=== PATIENT | male | born 1940 | race Caucasian/White ===

== ENCOUNTER 2023-07-15 14:56 | Inpatient (IN) | payer MEDICARE, SELFPAY ==
[2023-07-15 15:20] VITALS: BMI 18.0
--- NOTE | 2023-07-15 15:20 | ADMGEN ---
This patient, Alex Barton, was admitted to 2nd Floor Room 204-1. Patient/family oriented to hospital policies and general routines including ID bracelet, bed and alarms, visiting hours, pain management, procedures, bathroom and other care routines, personal items, smoking policy, room service/diet, and visiting hours. Information on how to activate the Rapid Response Team has been discussed. Patient/Family are encouraged to report perceived risks to care and to ask questions if they do not understand what they are told or what they should do.
[2023-07-15 16:00] VITALS: BP 117/67; PULSE 64; RESP 18; TEMP 35.9; O2SAT 97
[2023-07-15] MEDS: APIXABAN 2.5 MG TABLET PO (17:58)
[2023-07-15] MEDS: LOVASTATIN 20 MG TABLET 40 MG PO (17:58)
[2023-07-15] MEDS: DORZOLAMIDE/TIMOLOL OPHTH SOL 10 ML BOTTLE 1 DROP EACH EYE (17:58)
[2023-07-15 20:00] VITALS: PULSE 64; RESP 18; O2SAT 97
[2023-07-15] MEDS: GABAPENTIN 300 MG CAPSULE PO (20:45)
[2023-07-15] MEDS: clonazePAM (*CRX) 0.5 MG TABLET 2 MG PO (20:45)
[2023-07-15] MEDS: MELATONIN 3 MG TABLET PO (20:46)
[2023-07-15] MEDS: rOPINIRole HCL 1 MG TABLET 5 MG PO (20:46)
[2023-07-16] VITALS: BP 103/71; PULSE 78; RESP 18; TEMP 36.6; O2SAT 97
--- NOTE | 2023-07-16 04:57 | PC.NURSE ---
Patient was in bed watching TV. He requested his sleeping pill, and wanted his medications given at 2044. Vitals are WNL. Patient had one confused episode, but reoriented easily. Patient slept well. At about 299, patient was found sleeping in a slumped over seated position in bed. Patient was able to go back to sleep in a better position. Patient does not have any PRN pain medications on his JUN. He did not c/o pain. Patient has some orders that need to be clarified tomorrow.
[2023-07-16 06:05] LABS: Basophils Absolute Auto 0.07 K/mm3 (0.00-0.10); Basophils Percent Auto 1.2 % (0.0-1.0); Eosinophils Absolute Auto 0.17 K/mm3 (0.02-0.50); Hematocrit 40.9 % (37.0-46.0); Hemoglobin 13.7 g/dL (12.4-15.3); Immature Granulocyte Absolute 0.01 K/mm3 (0.00-0.00); Immature Granulocyte Percent A 0.2 % (0.0-0.0); Lymphocytes Absolute Auto 1.57 K/mm3 (1.10-4.50); Lymphocytes Percent Auto 27.4 % (18.0-42.0); Mean Corpuscular HGB Conc 33.5 g/dL (32-36); Mean Corpuscular Hemoglobin 32.2 pg (27.0-31.0); Mean Corpuscular Volume 96.2 fL (78.0-102.0); Mean Platelet Volume 11.4 fl (8.7-11.0); Monocytes Absolute Auto 0.79 K/mm3 (0.10-0.90); Monocytes Percent Auto 13.8 % (2.0-11.0); Neutrophils Absolute Auto 3.11 K/mm3 (1.70-7.20); Neutrophils Percent Auto 54.4 % (50.0-70.0); Platelet Count Result 187 K/mm3 (150-420); Red Blood Count 4.25 M/mm3 (4.70-6.10); Red Cell Distribution Width 12.8 % (11.6-14.4); White Blood Count 5.7 K/mm3 (4.8-10.8)
[2023-07-16 06:24] LABS: Alanine Aminotransferase 19 U/L (16-63); Albumin Level 3.5 g/dL (3.4-5.0); Alkaline Phosphatase 76 U/L (46-116); Anion Gap 10 mmol/L (4-12); Aspartate Amino Transferase 21 U/L (15-37); Bilirubin,Total 0.7 mg/dL (0.00-1.00); Blood Urea Nitrogen 19 mg/dL (7-18); Calcium 9.2 mg/dL (8.5-10.1); Carbon Dioxide 28 mmol/L (21-32); Chloride 105 mmol/L (98-108); Estimated CRCL calculation 43 ml/min; Estimated Glomerular Filt Rate > 60; Glucose 86 mg/dL (70-99); Magnesium 2.1 mg/dL (1.8-2.4); Osmolality Calculated 297 mOsm/kg (285-295); Potassium 3.8 mmol/L (3.5-5.1); Sodium 143 mmol/L (136-145); Total Protein 6.1 g/dL (6.4-8.2)
[2023-07-16 08:00] VITALS: BP 128/73; PULSE 70; RESP 20; TEMP 35.8; O2SAT 100
[2023-07-16] MEDS: APIXABAN 2.5 MG TABLET PO ×2 (09:35→16:27)
[2023-07-16] MEDS: EMPAGLIFLOZIN 10 MG TABLET PO (09:35)
[2023-07-16] MEDS: GABAPENTIN 300 MG CAPSULE PO ×2 (09:35→16:27)
[2023-07-16] MEDS: ASPIRIN 81 MG ENTERIC TABLET PO (09:35)
[2023-07-16] MEDS: DORZOLAMIDE/TIMOLOL OPHTH SOL 10 ML BOTTLE 1 DROP EACH EYE ×2 (10:00→16:28)
--- NOTE | 2023-07-16 10:43 | PM.IMHP ---
H&P: HPI History of Present Illness Date/Time: 07/16/23 10:43 Chief Complaint: sWING, pOST COVID , WEAKNESS , decreased functional mobility Narrative: This is a 82 year old male that is being admitted into our swing bed due to weakness Post Covid. Patient was treated for Covisd and some Slurred speech . Patient has a past mwedical hisotry of Chronic systolic CHF, EF 40-45%, Mild to moderate aortic stenosis, Atrial fibrillation, BPH CAD carotid artery stensiosi, insomnia, PVD, restless leg syndrom, hypercholesterolemia, stroke, abdominal aortic anerusm status post endovascular repair. Patient will continue his home medication and he will recieve physical and therapy while here until he is stable for discharge Review of Systems Review of Systems: Weakness, slurred speech All systems reviewed & are unremarkable except as noted in HPI and below PMFSH Past Medical History Medical History (Updated 07/16/23 @ 10:52 by Nate Pedroza NP) Aortic stenosis Atrial fibrillation Bronchitis CAD (coronary artery disease) Congestive heart failure Constipation Hypertension Insomnia Stroke Weakness Social History Social History Smoking status: Light tobacco smoker Tobacco type: cigarettes Second hand tobacco smoke exposure: No Alcohol intake: never Substance use: never Do You Feel Safe in your Home?: Yes Lack of Transportation: No Lack of Food: Never True Current Housing: I Have Housing Concerned About Future Housing: No Difficulty Paying Gas/Electric Bills: No Difficulty Paying for Meds: No Currently Unemployed: No Education: Trade/Vocational Certificate Difficulty w/ Childcare or Family Care: No Spiritual care concerns: No Meds Home Medications and Allergies Home Medications Medication Instructions Recorded Confirmed Type apixaban 2.5 mg tablet 2.5 mg PO BID 07/15/23 07/15/23 History aspirin 81 mg tablet 81 mg PO DAILY 07/15/23 07/15/23 History clonazepam 2 mg tablet 2 mg PO HS 07/15/23 07/15/23 History dorzolamide 22.3 mg-timolol 6.8 1 drp EACH EYE BID 07/15/23 07/15/23 History mg/mL eye drops empagliflozin 10 mg tablet 10 mg PO DAILY 07/15/23 07/15/23 History (Jardiance) gabapentin 300 mg capsule 300 mg PO BID 07/15/23 07/15/23 History lisinopril 5 mg tablet 5 mg PO BID 07/15/23 07/15/23 History lovastatin 40 mg tablet 40 mg PO QPM 07/15/23 07/15/23 History melatonin 3 mg tablet 3 mg PO HS PRN Insomnia 07/15/23 07/15/23 History metoprolol succinate 25 mg 25 mg PO DAILY 07/15/23 07/15/23 History tablet,extended release 24 hr polyethylene glycol 3350 17 gram 17 g PO DAILY PRN Constipation 07/15/23 07/15/23 History oral powder packet ropinirole 5 mg tablet 5 mg PO BID 07/15/23 07/15/23 History tacrolimus 0.1 % topical ointment 1 applic topical BID 07/15/23 07/15/23 History Allergies Allergy/AdvReac Type Severity Reaction Status Date / Time No Known Allergies Allergy Verified 07/15/23 16:47 Vital Signs Vital Signs - 24 hr 07/15/23 16:00 07/15/23 16:00 07/15/23 16:00 Temperature 96.7 F L 96.7 F L Pulse Rate 64 64 64 Respiratory Rate 18 18 18 Blood Pressure 117/67 117/67 Pulse Oximetry 97 97 97 Oxygen Delivery Room Air Room Air Room Air 07/15/23 20:00 07/16/23 00:00 07/16/23 08:00 Temperature 97.8 F 96.4 F L Pulse Rate 64 78 70 Respiratory Rate 18 18 20 Blood Pressure 103/71 128/73 Pulse Oximetry 97 97 100 Oxygen Delivery Room Air Room Air Room Air Exam Const: General: comfortable and no acute distress HENMT: Face/Nose/Sinus: Normal nares present Mouth: Yes moist mucous membranes Eyes: General: appearance normal, both eyes and all related structures Pupils: Equal, round and reactive pupils present Resp: Auscultation: clear to auscultation bilaterally and diminished lung sounds (right lower lobe ) Extrem: General: normal to inspection Psych: Affect: normal affect H&P: Results Labs Labs: Short CBC 07/16/23 Ra
--- NOTE | 2023-07-16 12:24 | PHAR ---
VERIFIED PT.'S OWN SUPPLY OF COSOPT OPHTHALMIC DROPS, 1 DROP EACH EYE BID.
--- NOTE | 2023-07-16 14:15 | PHAR ---
VERIFIED HOME MED TACROLIMUS OINTMENT 0.1% APPLY TO LOWER EYE BID.
[2023-07-16 16:00] VITALS: BP 124/68; PULSE 70; RESP 18; TEMP 36; O2SAT 98
[2023-07-16] MEDS: TACROLIMUS 0.1% 30 GM OINTMENT 1 APPLIC TOPICAL (16:28)
[2023-07-16] MEDS: DICLOFENAC SODIUM 1% 100 GM GEL (*BKC) 1 APPLIC TOPICAL ×2 (16:28→21:07)
[2023-07-16] MEDS: LOVASTATIN 20 MG TABLET 40 MG PO (17:44)
[2023-07-16] MEDS: clonazePAM (*CRX) 0.5 MG TABLET 2 MG PO (21:07)
[2023-07-16] MEDS: rOPINIRole HCL 1 MG TABLET 5 MG PO (21:07)
[2023-07-17] VITALS: BP 142/64; PULSE 81; RESP 16; TEMP 36.4; O2SAT 98
[2023-07-17 07:30] VITALS: BP 93/51; PULSE 67; RESP 16; TEMP 36; O2SAT 98
--- NOTE | 2023-07-17 09:17 | P.PNCROSS_ITS ---
Event Note Event Note Event Note: Blood pressure ranging 124/68 to 142/64. Restarted his lisinopril and his me toprolol today. Patient has a history of AFib and is currently on Eliquis. His heart rate is 60-81 currently. We will continue to monitor.
[2023-07-17] MEDS: ASPIRIN 81 MG ENTERIC TABLET PO (09:34)
[2023-07-17] MEDS: GABAPENTIN 300 MG CAPSULE PO ×2 (09:34→17:08)
[2023-07-17] MEDS: APIXABAN 2.5 MG TABLET PO ×2 (09:35→17:08)
[2023-07-17] MEDS: EMPAGLIFLOZIN 10 MG TABLET PO (09:35)
[2023-07-17] MEDS: DICLOFENAC SODIUM 1% 100 GM GEL (*BKC) 1 APPLIC TOPICAL ×3 (09:37→20:43)
[2023-07-17] MEDS: DORZOLAMIDE/TIMOLOL OPHTH SOL 10 ML BOTTLE 1 DROP EACH EYE ×2 (09:37→17:08)
[2023-07-17 16:30] VITALS: BP 123/57; PULSE 85; RESP 16; TEMP 36.6; O2SAT 96
[2023-07-17] MEDS: lisinopriL 5 MG TABLET PO (17:08)
[2023-07-17] MEDS: LOVASTATIN 20 MG TABLET 40 MG PO (17:08)
[2023-07-17] MEDS: clonazePAM (*CRX) 0.5 MG TABLET 2 MG PO (20:43)
[2023-07-17] MEDS: rOPINIRole HCL 1 MG TABLET 5 MG PO (20:44)
[2023-07-18] VITALS: BP 107/58; PULSE 64; RESP 19; TEMP 36.5; O2SAT 93
[2023-07-18 07:45] VITALS: BP 140/62; PULSE 55; RESP 16; TEMP 36.3; O2SAT 94
[2023-07-18 10:07] VITALS: PULSE 55
[2023-07-18] MEDS: GABAPENTIN 300 MG CAPSULE PO ×2 (10:07→17:13)
[2023-07-18] MEDS: APIXABAN 2.5 MG TABLET PO ×2 (10:07→17:13)
[2023-07-18] MEDS: lisinopriL 5 MG TABLET PO ×2 (10:07→17:13)
[2023-07-18] MEDS: METOPROLOL SUCCINATE EXT REL 25 MG TABCR PO (10:07)
[2023-07-18] MEDS: ASPIRIN 81 MG ENTERIC TABLET PO (10:07)
[2023-07-18] MEDS: EMPAGLIFLOZIN 10 MG TABLET PO (10:07)
[2023-07-18] MEDS: DORZOLAMIDE/TIMOLOL OPHTH SOL 10 ML BOTTLE 1 DROP EACH EYE ×2 (10:08→17:14)
[2023-07-18] MEDS: DICLOFENAC SODIUM 1% 100 GM GEL (*BKC) 1 APPLIC TOPICAL ×3 (13:40→21:01)
[2023-07-18 16:30] VITALS: BP 121/58; PULSE 52; RESP 16; TEMP 36.4; O2SAT 100
[2023-07-18] MEDS: LOVASTATIN 20 MG TABLET 40 MG PO (17:13)
[2023-07-18] MEDS: rOPINIRole HCL 1 MG TABLET 5 MG PO (21:01)
[2023-07-18] MEDS: clonazePAM (*CRX) 0.5 MG TABLET 2 MG PO (21:01)
[2023-07-19] VITALS: BP 147/55; PULSE 52; RESP 16; TEMP 35.8; O2SAT 96
[2023-07-19 08:00] VITALS: BP 115/56; PULSE 52; PULSE 58; RESP 18; TEMP 35.9; O2SAT 97
--- NOTE | 2023-07-19 08:13 | P.PNCROSS_ITS ---
Event Note Event Note Event Note: Patient up in chair eating he denies needing anytihing at this time. Patient la bs and vitals reviewed Patient has been working with therapy and not changes need to be made will continue to monitor informed patient if he needs anything medical to let me know .
[2023-07-19] MEDS: ASPIRIN 81 MG ENTERIC TABLET PO (09:57)
[2023-07-19] MEDS: DORZOLAMIDE/TIMOLOL OPHTH SOL 10 ML BOTTLE 1 DROP EACH EYE ×2 (09:57→17:57)
[2023-07-19] MEDS: lisinopriL 5 MG TABLET PO ×2 (09:57→17:53)
[2023-07-19] MEDS: DICLOFENAC SODIUM 1% 100 GM GEL (*BKC) 1 APPLIC TOPICAL ×4 (09:57→20:37)
[2023-07-19] MEDS: APIXABAN 2.5 MG TABLET PO ×2 (09:57→17:52)
[2023-07-19 09:58] VITALS: PULSE 76
[2023-07-19] MEDS: EMPAGLIFLOZIN 10 MG TABLET PO (09:58)
[2023-07-19] MEDS: METOPROLOL SUCCINATE EXT REL 25 MG TABCR PO (09:58)
[2023-07-19] MEDS: GABAPENTIN 300 MG CAPSULE PO ×2 (09:58→17:52)
[2023-07-19 16:00] VITALS: BP 136/68; PULSE 90; RESP 18; TEMP 36.3; O2SAT 99
[2023-07-19] MEDS: LOVASTATIN 20 MG TABLET 40 MG PO (17:52)
[2023-07-19] MEDS: TACROLIMUS 0.1% 30 GM OINTMENT 1 APPLIC TOPICAL (17:57)
[2023-07-19 20:00] VITALS: PULSE 90; RESP 18; O2SAT 99
[2023-07-19] MEDS: rOPINIRole HCL 1 MG TABLET 5 MG PO (20:37)
[2023-07-19] MEDS: MELATONIN 3 MG TABLET PO (20:37)
[2023-07-19] MEDS: clonazePAM (*CRX) 0.5 MG TABLET 2 MG PO (20:37)
[2023-07-20] VITALS: BP 93/45; PULSE 51; RESP 16; TEMP 36.3; O2SAT 97
--- NOTE | 2023-07-20 06:29 | PC.NURSE ---
Pt called, requested alarm be shut off so he could get up unimpeded. Fabrication Mig Welder assisted pt to recliner, pt c/o BLE arthritis pain, causing stiffness. Pt clothes noted to be wet, edward-care provided, depends and clean clothes donned. Pt noted having difficulty rising from recliner to change clothes, cushion applied to chair. No PRN Pain med available to offer for pain, warm coffee given per pt request.
[2023-07-20 08:00] VITALS: BP 89/50; PULSE 44; PULSE 47; RESP 18; TEMP 36.1; O2SAT 97; O2SAT 98
[2023-07-20] MEDS: ASPIRIN 81 MG ENTERIC TABLET PO (08:54)
[2023-07-20] MEDS: EMPAGLIFLOZIN 10 MG TABLET PO (08:54)
[2023-07-20] MEDS: APIXABAN 2.5 MG TABLET PO ×2 (08:55→17:51)
[2023-07-20] MEDS: GABAPENTIN 300 MG CAPSULE PO ×2 (08:55→17:51)
[2023-07-20] MEDS: DORZOLAMIDE/TIMOLOL OPHTH SOL 10 ML BOTTLE 1 DROP EACH EYE ×2 (08:55→17:53)
[2023-07-20] MEDS: DICLOFENAC SODIUM 1% 100 GM GEL (*BKC) 1 APPLIC TOPICAL ×4 (08:55→20:25)
[2023-07-20] MEDS: TACROLIMUS 0.1% 30 GM OINTMENT 1 APPLIC TOPICAL ×2 (08:55→17:53)
--- NOTE | 2023-07-20 09:19 | P.PNCROSS_ITS ---
Event Note Event Note Event Note: Placed full code status as there is no order for code. Patient blood pressure h as been hold due to hypotensive. Patient is also need a NSAID for some extra pain
[2023-07-20 10:00] VITALS: BP 135/58; PULSE 47; O2SAT 98
[2023-07-20 16:00] VITALS: BP 117/51; PULSE 65; RESP 18; TEMP 36.1; O2SAT 94
[2023-07-20] MEDS: rOPINIRole HCL 1 MG TABLET 5 MG PO (17:51)
[2023-07-20 20:00] VITALS: PULSE 65; RESP 18; O2SAT 94
[2023-07-20] MEDS: IBUPROFEN 600 MG TABLET PO (20:25)
[2023-07-20] MEDS: clonazePAM (*CRX) 0.5 MG TABLET 2 MG PO (20:25)
[2023-07-20] MEDS: MELATONIN 3 MG TABLET PO (20:25)
[2023-07-20 23:53] VITALS: BP 125/51; PULSE 56; RESP 16; TEMP 36.3; O2SAT 97
[2023-07-21 08:00] VITALS: BP 94/41; PULSE 46; PULSE 54; RESP 16; RESP 18; TEMP 36.1; O2SAT 95; O2SAT 97
[2023-07-21] MEDS: rOPINIRole HCL 1 MG TABLET 5 MG PO ×2 (08:50→17:52)
[2023-07-21] MEDS: DICLOFENAC SODIUM 1% 100 GM GEL (*BKC) 1 APPLIC TOPICAL ×4 (08:51→20:33)
[2023-07-21] MEDS: TACROLIMUS 0.1% 30 GM OINTMENT 1 APPLIC TOPICAL ×2 (08:51→17:57)
[2023-07-21] MEDS: APIXABAN 2.5 MG TABLET PO (08:51)
[2023-07-21] MEDS: EMPAGLIFLOZIN 10 MG TABLET PO (08:51)
[2023-07-21] MEDS: GABAPENTIN 300 MG CAPSULE PO ×2 (08:51→17:52)
[2023-07-21] MEDS: DORZOLAMIDE/TIMOLOL OPHTH SOL 10 ML BOTTLE 1 DROP EACH EYE ×2 (08:51→17:56)
[2023-07-21] MEDS: ASPIRIN 81 MG ENTERIC TABLET PO (08:51)
[2023-07-21 10:15] VITALS: BP 100/50; PULSE 46; RESP 16; TEMP 36.1; O2SAT 97
--- NOTE | 2023-07-21 10:44 | PM.IMPN ---
Progress Note: A&P Assessment and Plan (1) Insomnia: Code(s): G47.00 - Insomnia, unspecified Status: Acute Assessment and Plan: continue p.r.n. clonazepam that patient has taken for years (2) Hypertension: Code(s): I10 - Essential (primary) hypertension Status: Acute Assessment and Plan: blood pressure medications held as he has been hypotensive for the last 2 days. Initiate oral midodrine 5 mg t.i.d. consider increasing this if still hypotensive tomorrow (3) Stroke: Code(s): I63.9 - Cerebral infarction, unspecified Status: Acute Assessment and Plan: no new neurologic defects (4) CAD (coronary artery disease): Code(s): I25.10 - Atherosclerotic heart disease of [place] coronary artery without angina pectoris Status: Acute Assessment and Plan: stable continue home medication (5) Atrial fibrillation: Code(s): I48.91 - Unspecified atrial fibrillation Status: Acute Assessment and Plan: bradycardic rate despite holding metoprolol for 2 days (6) Aortic stenosis: Code(s): I35.0 - Nonrheumatic aortic (valve) stenosis Status: Acute (7) Congestive heart failure: Code(s): I50.9 - Heart failure, unspecified Status: Acute Assessment and Plan: no signs of fluid overload or pulmonary edema (8) Weakness: Code(s): R53.1 - Weakness Status: Acute Assessment and Plan: Physical therapy and Occupational therapy evaluate and treat (9) Bronchitis: Code(s): J40 - Bronchitis, not specified as acute or chronic Status: Acute Assessment and Plan: cough medication (10) Constipation: Code(s): K59.00 - Constipation, unspecified Status: Acute Assessment and Plan: - Prn medication Time Spent With Patient Time: 32 minutes Time with patient: 25 - 35 minutes Subjective Date/time seen: 07/21/23 10:44 Interval history: Mr. Barton Is an 82-year-old male patient currently admitted to community hospital bed [facility] after hospitalization for UTI, sepsis, hypotension and rule out stroke. Over the last 2 days patient's blood pressure has been decreasing. Patient denies any fever chills denies any confusion and actually slept well last night for the 1st time in a couple weeks. However, yesterday his lisinopril and metoprolol were placed on hold due to low blood pressure. Those medicines continued to be held today but blood pressure was 87/50 this morning and patient had some symptomatic dizziness with position changes. He is drinking well. I reached out to primary care office to receive recent echocardiogram. He had 1 6 months ago showing EF of 40-45%. No signs of fluid overload or dyspnea at this time. No swelling. Patient reports that his blood pressure has been increasing and decreasing on its own for years. He reports that he just feels a little more tired today but otherwise has no other symptoms. At this time we will continue patient at swing bed status and at labs, recheck urine and initiate midodrine 5 mg t.i.d. Labs were reviewed and white blood cell count is 4.6 normal renal function UA is still pending. Review of Systems Review of Systems: All systems reviewed & are unremarkable except as noted in HPI and below Exam Narrative: GENERAL: Well-appearing, well-nourished, and in no acute distress. HEAD: Normocephalic, atraumatic. ENT:? Mucous membranes moist. CHEST: Clear to auscultation.? No respiratory distress. HEART: Bradycardic rate and regular rhythm. ? strong peripheral pulses despite low blood pressure. ABDOMEN: Soft, nontender, nondistended. EXTREMITIES: Normal range of motion. No peripheral edema. SKIN: Warm dry normal color NEURO: Alert and oriented x3. PSYCH: Normal mood and affect Objective Data Vital Signs Vital Signs: Vital Signs - 24 hr 07/20/23 16:00 07/20/23 20:00 07/20/23 23:53 Temperature 36.1 C
[2023-07-21] MEDS: MIDODRINE HCL 2.5 MG TABLET 5 MG PO ×3 (10:47→17:52)
[2023-07-21 11:15] LABS: Basophils Absolute Auto 0.04 K/mm3 (0.00-0.10); Basophils Percent Auto 0.9 % (0.0-1.0); Eosinophils Absolute Auto 0.17 K/mm3 (0.02-0.50); Eosinophils Percent Auto 3.7 % (1.0-6.0); Hematocrit 46.9 % (37.0-46.0); Hemoglobin 14.4 g/dL (12.4-15.3); Immature Granulocyte Absolute 0.01 K/mm3 (0.00-0.00); Immature Granulocyte Percent A 0.2 % (0.0-0.0); Lymphocytes Absolute Auto 1.16 K/mm3 (1.10-4.50); Lymphocytes Percent Auto 25.2 % (18.0-42.0); Mean Corpuscular HGB Conc 30.7 g/dL (32-36); Mean Corpuscular Hemoglobin 31.5 pg (27.0-31.0); Mean Corpuscular Volume 102.6 fL (78.0-102.0); Mean Platelet Volume 11.3 fl (8.7-11.0); Monocytes Absolute Auto 0.47 K/mm3 (0.10-0.90); Monocytes Percent Auto 10.2 % (2.0-11.0); Neutrophils Absolute Auto 2.76 K/mm3 (1.70-7.20); Neutrophils Percent Auto 59.8 % (50.0-70.0); Platelet Count Result 227 K/mm3 (150-420); Red Blood Count 4.57 M/mm3 (4.70-6.10); Red Cell Distribution Width 13.2 % (11.6-14.4); White Blood Count 4.6 K/mm3 (4.8-10.8)
[2023-07-21 11:40] LABS: Anion Gap 11 mmol/L (4-12); Blood Urea Nitrogen 21 mg/dL (7-18); Calcium 9.1 mg/dL (8.5-10.1); Carbon Dioxide 29 mmol/L (21-32); Chloride 105 mmol/L (98-108); Estimated CRCL calculation 42 ml/min; Estimated Glomerular Filt Rate > 60; Glucose 68 mg/dL (70-99); Magnesium 2.2 mg/dL (1.8-2.4); Osmolality Calculated 301 mOsm/kg (285-295); Phosphorus 3.4 mg/dL (2.6-4.7); Potassium 3.8 mmol/L (3.5-5.1); Sodium 145 mmol/L (136-145)
[2023-07-21 16:00] VITALS: BP 155/62; PULSE 56; RESP 18; TEMP 36.3; O2SAT 95
[2023-07-21] MEDS: LOVASTATIN 20 MG TABLET 40 MG PO (17:56)
[2023-07-21 20:00] VITALS: PULSE 56; RESP 18; O2SAT 95
[2023-07-21] MEDS: clonazePAM (*CRX) 0.5 MG TABLET 2 MG PO (20:33)
[2023-07-21] MEDS: APIXABAN 2.5 MG TABLET 5 MG PO (20:33)
[2023-07-21] MEDS: ACETAMINOPHEN 325 MG TABLET 650 MG PO (20:33)
[2023-07-21] MEDS: MELATONIN 3 MG TABLET PO (20:33)
[2023-07-21 21:58] LABS: Appearance Urine Clear (Clear); Bilirubin Urine Negative (Negative); Blood Urine Negative (Negative); Color Urine Yellow (Yellow); Glucose Urine UA 3+ (Negative); Ketones Urine Negative (Negative); Leukocyte Esterase Ur Negative LEU/UL (Negative); Nitrate Urine Negative (Negative); Protein Urine Negative (Negative); Specific Grav Ur 1.015 (1.010-1.020)
[2023-07-21 22:00] LABS: Add Urine Microscopic? YES; Bacteria Urine None seen /hpf; RBC Urine 0-2 /hpf (0-2); Squamous Epithelial Cell Urine None seen /hpf (Few); WBC Urine 0-3 /hpf (0-3)
[2023-07-22] VITALS: BP 143/60; PULSE 87; RESP 17; TEMP 36.6; O2SAT 99
[2023-07-22] MEDS: IBUPROFEN 600 MG TABLET PO (06:21)
[2023-07-22 08:00] VITALS: BP 145/72; PULSE 56; RESP 17; TEMP 36.4; O2SAT 99
[2023-07-22] MEDS: rOPINIRole HCL 1 MG TABLET 5 MG PO ×2 (09:47→17:41)
[2023-07-22] MEDS: GABAPENTIN 300 MG CAPSULE PO ×2 (09:47→17:41)
[2023-07-22] MEDS: ASPIRIN 81 MG ENTERIC TABLET PO (09:47)
[2023-07-22] MEDS: APIXABAN 2.5 MG TABLET 5 MG PO ×2 (09:48→20:30)
[2023-07-22] MEDS: DICLOFENAC SODIUM 1% 100 GM GEL (*BKC) 1 APPLIC TOPICAL ×4 (09:48→20:31)
[2023-07-22] MEDS: EMPAGLIFLOZIN 10 MG TABLET PO (09:48)
[2023-07-22] MEDS: MIDODRINE HCL 2.5 MG TABLET 5 MG PO ×2 (09:48→13:13)
[2023-07-22] MEDS: DORZOLAMIDE/TIMOLOL OPHTH SOL 10 ML BOTTLE 1 DROP EACH EYE ×2 (09:49→17:41)
[2023-07-22 16:00] VITALS: BP 155/69; PULSE 56; RESP 17; TEMP 36.6; O2SAT 97
[2023-07-22] MEDS: LOVASTATIN 20 MG TABLET 40 MG PO (17:42)
[2023-07-22] MEDS: MELATONIN 3 MG TABLET PO (20:30)
[2023-07-22] MEDS: clonazePAM (*CRX) 0.5 MG TABLET 2 MG PO (20:31)
[2023-07-23] VITALS: BP 124/43; PULSE 60; RESP 16; TEMP 35.9; O2SAT 95
--- NOTE | 2023-07-23 06:47 | PC.NURSE ---
report to albino morales. all questions answered.
[2023-07-23 08:00] VITALS: BP 98/53; PULSE 64; RESP 16; TEMP 36.3; O2SAT 98
[2023-07-23] MEDS: APIXABAN 2.5 MG TABLET 5 MG PO ×2 (09:22→20:35)
[2023-07-23] MEDS: MIDODRINE HCL 2.5 MG TABLET 5 MG PO ×3 (09:22→17:04)
[2023-07-23] MEDS: rOPINIRole HCL 1 MG TABLET 5 MG PO ×2 (09:23→17:04)
[2023-07-23] MEDS: EMPAGLIFLOZIN 10 MG TABLET PO (09:30)
[2023-07-23] MEDS: GABAPENTIN 300 MG CAPSULE PO ×2 (09:30→17:04)
[2023-07-23] MEDS: ASPIRIN 81 MG ENTERIC TABLET PO (09:30)
[2023-07-23] MEDS: DORZOLAMIDE/TIMOLOL OPHTH SOL 10 ML BOTTLE 1 DROP EACH EYE ×2 (09:30→17:04)
[2023-07-23] MEDS: DICLOFENAC SODIUM 1% 100 GM GEL (*BKC) 1 APPLIC TOPICAL ×4 (09:40→20:41)
[2023-07-23 16:00] VITALS: BP 145/63; PULSE 67; RESP 17; TEMP 36.6; O2SAT 96
[2023-07-23] MEDS: LOVASTATIN 20 MG TABLET 40 MG PO (17:24)
[2023-07-23] MEDS: clonazePAM (*CRX) 0.5 MG TABLET 2 MG PO (20:36)
[2023-07-23] MEDS: MELATONIN 3 MG TABLET PO (20:36)
--- NOTE | 2023-07-23 23:30 | PC.NURSE ---
Found standing by chair, with pants off and one leg removed from underwear, states getting dressed to go home now. Disoriented to time, place, and circumstances. Reoriented to time, place, circumstances and he is to go home Friday. Assisted to dress and removed items on floor and discussed trip hazards in room. Discussed fall hazards and need for help to get up, Discussed bed alarm as safety reminder and agrees to same. Assisted back to bed and bed alarm activated. Gait is steady with walker and minimal stand by assist of one.
[2023-07-24] VITALS: BP 146/68; PULSE 62; RESP 20; TEMP 36.1; O2SAT 95
[2023-07-24 07:30] VITALS: BP 107/60; PULSE 54; RESP 16; TEMP 35.7; O2SAT 99
[2023-07-24] MEDS: ASPIRIN 81 MG ENTERIC TABLET PO (09:14)
[2023-07-24] MEDS: APIXABAN 2.5 MG TABLET 5 MG PO ×2 (09:14→20:53)
[2023-07-24] MEDS: GABAPENTIN 300 MG CAPSULE PO ×2 (09:14→17:09)
[2023-07-24] MEDS: MIDODRINE HCL 2.5 MG TABLET 5 MG PO ×3 (09:14→17:05)
[2023-07-24] MEDS: EMPAGLIFLOZIN 10 MG TABLET PO (09:15)
[2023-07-24] MEDS: rOPINIRole HCL 1 MG TABLET 5 MG PO ×2 (09:19→17:04)
[2023-07-24] MEDS: DORZOLAMIDE/TIMOLOL OPHTH SOL 10 ML BOTTLE 1 DROP EACH EYE ×2 (09:20→17:09)
[2023-07-24] MEDS: DICLOFENAC SODIUM 1% 100 GM GEL (*BKC) 1 APPLIC TOPICAL ×4 (09:20→20:54)
[2023-07-24 16:00] VITALS: BP 146/78; PULSE 78; RESP 16; TEMP 36.1; O2SAT 96
[2023-07-24] MEDS: LOVASTATIN 20 MG TABLET 40 MG PO (18:36)
[2023-07-24] MEDS: clonazePAM (*CRX) 0.5 MG TABLET 2 MG PO (20:53)
[2023-07-24] MEDS: MELATONIN 3 MG TABLET PO (20:54)
[2023-07-24] MEDS: IBUPROFEN 600 MG TABLET PO (20:54)
[2023-07-25] VITALS: BP 128/56; PULSE 62; RESP 16; TEMP 36.6; O2SAT 94
--- NOTE | 2023-07-25 05:58 | PC.NURSE ---
Patient was sitting in the chair when the shift started. He called to use the toilet, and was continent of bowel (large BM). Patient was given ibuprofen for arthritis in his knees. Patient has a good appetite, and snacks frequently throughout the night. Patient was awake several times last night. He will be discharging back to his apartment later this morning.
--- NOTE | 2023-07-25 07:21 | PM.DS ---
DS: Admitting Diagnosis Discharge Date 07/24 Admitting Diagnosis Swing Bed for Rehab after hospitalization DS: Discharge Diagnosis Discharge Diagnosis (1) Insomnia: Code(s): G47.00 - Insomnia, unspecified Status: Acute Assessment and Plan: continue p.r.n. clonazepam that patient has taken for years (2) Hypertension: Code(s): I10 - Essential (primary) hypertension Status: Acute Assessment and Plan: blood pressure medications held as he has been hypotensive for the last 2 days. Initiate oral midodrine 5 mg t.i.d. consider increasing this if still hypotensive tomorrow (3) Stroke: Code(s): I63.9 - Cerebral infarction, unspecified Status: Acute Assessment and Plan: no new neurologic defects (4) CAD (coronary artery disease): Code(s): I25.10 - Atherosclerotic heart disease of [place] coronary artery without angina pectoris Status: Acute Assessment and Plan: stable continue home medication (5) Atrial fibrillation: Code(s): I48.91 - Unspecified atrial fibrillation Status: Acute Assessment and Plan: bradycardic rate despite holding metoprolol for 2 days (6) Aortic stenosis: Code(s): I35.0 - Nonrheumatic aortic (valve) stenosis Status: Acute (7) Congestive heart failure: Code(s): I50.9 - Heart failure, unspecified Status: Acute Assessment and Plan: no signs of fluid overload or pulmonary edema (8) Weakness: Code(s): R53.1 - Weakness Status: Acute Assessment and Plan: Physical therapy and Occupational therapy evaluate and treat (9) Bronchitis: Code(s): J40 - Bronchitis, not specified as acute or chronic Status: Acute Assessment and Plan: cough medication (10) Constipation: Code(s): K59.00 - Constipation, unspecified Status: Acute Assessment and Plan: - Prn medication DS: Summary Hospital Course Reason for hospitalization: Swing Bed for Rehab Hospital Course: This is a 82 year? old male that is being admitted into our swing bed due to weakness Post Covid. Patient was treated for Covid and some Slurred speech . Patient has a past medical history of Chronic systolic CHF, EF 40-45%, Mild to moderate aortic stenosis, Atrial fibrillation, BPH CAD carotid artery stenosis, insomnia, PVD, restless leg syndrome, hypercholesterolemia, stroke, abdominal aortic aneurysm status post endovascular repair. Patient will continue his home medication and he will receive physical and therapy while here until he is stable for discharge. During his rehab stay he had issues with low blood pressure and bradycardia. His metoprolol and lisinopril were stopped on 07/19 and he was started on midodrine 5 mg TID. It has been six days since holding his blood pressure medications and his pressures have been running 98-150/43-68 mm hg. His heart rate has been ranging 46-78 bpm. He is set to discharge today. I have advised him to follow with his PCP in the next week to review his blood pressures and heart rate to see if he needs to be re-started on his home agents. / Status at Discharge Cognitive/behavioral status at discharge: A&Ox4, pleasant Time Spent with Patient Time attestation: Total time spent providing and/or coordinating discharge services:43 Exam Narrative: General: well appearing, well developed, well nourished, appears stated age. HEENT: normocephalic, atraumatic. Mucous membranes moist. EOMI, PERRLA, bilateral sclera anicteric, no conjunctival injection. Neck supple without JVD, lymphadenopathy, or bruit. Respiratory: clear to ascultation bilaterally. No rales/rhonic/wheezes. Cardiovascular: Regular rate and rhythm, normal S1-S2 upon ascultation. No murmurs, rubs, or clicks. PMI is nondisplaced, capillary re-fill less than 3 second. Abdomen: Soft, flat, no pulsatile masses, non-distended and non-tender. No rebound, no guarding. No CVA tendernes
[2023-07-25 08:00] VITALS: BP 132/88; PULSE 82; RESP 18; TEMP 36.1; O2SAT 92
[2023-07-25] MEDS: rOPINIRole HCL 1 MG TABLET 5 MG PO (08:25)
[2023-07-25] MEDS: MIDODRINE HCL 2.5 MG TABLET 5 MG PO (08:26)
[2023-07-25] MEDS: APIXABAN 2.5 MG TABLET 5 MG PO (08:26)
[2023-07-25] MEDS: ASPIRIN 81 MG ENTERIC TABLET PO (08:26)
[2023-07-25] MEDS: DICLOFENAC SODIUM 1% 100 GM GEL (*BKC) 1 APPLIC TOPICAL (08:26)
[2023-07-25] MEDS: DORZOLAMIDE/TIMOLOL OPHTH SOL 10 ML BOTTLE 1 DROP EACH EYE (08:27)
[2023-07-25] MEDS: EMPAGLIFLOZIN 10 MG TABLET PO (08:27)
[2023-07-25] MEDS: GABAPENTIN 300 MG CAPSULE PO (08:27)
--- NOTE | 2023-07-25 12:57 | PC.NURSE ---
1120 family and patient both verbalize an understanding of meds. made aware of follow up appointment. made aware that he needs to keep a record of hr and bp to take with them to doctor appointment. aware of home meds that are on hold. explained new meds and why they need to take. dc to family auto. all personal items sent with him.
--- NOTE | 2023-07-28 09:49 | PC.NURSE ---
Discharge call back attempted, no answer
--- NOTE | 2023-07-29 09:49 | PC.NURSE ---
Discharge call back attempted, no answer
--- NOTE | 2023-07-30 08:33 | PC.NURSE ---
Discharge call back attempted, no answer
== END 2023-07-25 11:20 | disposition home health service (06) | DRG 947 ==
PROVIDERS: Nurse Practitioner; Nurse Practitioner Acute Care; Admitting Provider Internal Medicine; Visit Provider Internal Medicine
DX: R53.1 Weakness (principal); U07.1 COVID-19; I50.22 Chronic systolic (congestive) heart failure; I48.20 Chronic atrial fibrillation, unspecified; I35.0 Nonrheumatic aortic (valve) stenosis; I25.10 Atherosclerotic heart disease of native coronary artery without angina pectoris; I65.29 Occlusion and stenosis of unspecified carotid artery; K59.00 Constipation, unspecified; E78.5 Hyperlipidemia, unspecified; I73.9 Peripheral vascular disease, unspecified; N40.0 Benign prostatic hyperplasia without lower urinary tract symptoms; J40 Bronchitis, not specified as acute or chronic; G25.81 Restless legs syndrome; G47.00 Insomnia, unspecified; Z79.01 Long term (current) use of anticoagulants; Z79.82 Long term (current) use of aspirin
CPT/HCPCS: 36415; 80053; 80069; 81001; 83605; 83735; 85025; 87040; 97110; 97112; 97161; 97165; 97530; 97535; A9270